=== PATIENT | female | born 1960 | race Caucasian/White ===

== ENCOUNTER → 2017-07-03 | Outpatient (CLI) | payer OTHER ==
--- NOTE | 2017-07-03 15:39 | REP ---
Cervical spine seven views: Vertebral body heights and alignment are normal. Interspacing is normal except for mild disc space narrowing at C5-6 compatible with degenerative disc disease. Prevertebral soft tissues are normal. The facets are normally. There is no listhesis on flexion or extension. The odontoid view is unremarkable. There is no bony foraminal encroachment. Impression: Mild C 05/06 degenerative disc disease.
--- NOTE | 2017-07-03 15:59 | REP ---
Right shoulder four views : There is no fracture or dislocation. Mineralization and joint spaces are normal. There are no calcifications or foreign bodies. Impression: Negative right shoulder .
== END ==
LOC: M CLY 10:39
PROVIDERS: ATTEND Nurse Practitioner Family
DX: R20.0 Anesthesia of skin (principal); M50.822 Other cervical disc disorders at C5-C6 level